=== PATIENT | male | born 1960 | race Caucasian/White ===

== ENCOUNTER → 2020-06-15 16:29 | Outpatient (CLI) | payer OTHER, SELFPAY ==
[2020-06-15 15:57] VITALS: BMI 24.4
[2020-06-17 17:01] LABS: PSA, Free 0.15 ng/mL; PSA, Free % 21.4 % (.); PSA, Total Ultrasensitive 0.7 ng/mL (0.0-4.0)
== END ==
PROVIDERS: PCP Family Medicine; Referring Provider Family Medicine; Visit Provider Family Medicine
DX: R97.20 Elevated prostate specific antigen [PSA] (principal)
CPT/HCPCS: 36415; 84153; 84154

== ENCOUNTER → 2025-07-21 | Outpatient (CLI) | payer OTHER, SELFPAY ==
[2025-07-21 17:36] LABS: PSA,Total - Annual Screen 0.50 ng/mL (0.02-4.00)
[2025-07-21 17:47] LABS: AST(SGOT) 29 U/L (<=37); Alanine Aminotransfer ALT/SGPT 31 U/L (<=46); Albumin, Serum 4.6 g/dL (3.4-4.8); Alkaline Phosphatase 81 U/L (40-129); Anion Gap 14 (5-15); BUN 17 mg/dL (4-19); BUN/Creat Ratio 19.9 RATIO (10-20); Calcium,Total 9.3 mg/dL (7.6-11.0); Carbon Dioxide 22.0 mmol/L (21.0-32.0); Chloride 103 mmol/L (98-108); Globulin 2.8 g/dL (2.2-4.2); Glucose 100 mg/dL (70-99); Potassium 4.0 mmol/L (3.3-5.1)
[2025-07-21 18:05] LABS: Cholesterol 217 mg/dL (<=200); Low Density Lipoprotein Calc. 102 mg/dL; Triglycerides 370 mg/dL; Very Low Density Lipoprotein 74 mg/dL (5-40); cholesterol:hdl ratio screen 5.32
== END | disposition home or self-care (01) ==
LOC: BIMLAB 15:02
PROVIDERS: PCP Family Medicine; Referring Provider Family Medicine; Visit Provider Family Medicine
DX: Z00.00 Encounter for general adult medical examination without abnormal findings (principal)
CPT/HCPCS: 36415; 80053; 80061; 84153; G0103